=== PATIENT | male | born 1965 | race Caucasian/White ===

== ENCOUNTER 2018-01-17 08:47 | Emergency (ER) | payer MEDICARE, MEDICAID ==
[~2018-01-17] VITALS: Ht 185.4 cm; Wt 86.0 kg
[~2018-01-17 08:47] MED LIST: CEPH-572 PO; CEPH250T PO; IBUP-1051 PO; IBUP-1985 PO; IBUP-1986 PO; NO HOME MEDS; SULF1TAB49 PO
[2018-01-17 08:49] VITALS: BP 117/86
[2018-01-17] MEDS ORDERED: SULF1TAB49 PO (09:07)
[2018-01-17] MEDS ORDERED: CEPH-572 PO (09:07)
== END 2018-01-17 09:18 | disposition home or self-care (01) ==
LOC: ER 08:48
DX: L03.115 Cellulitis of right lower limb (principal); F17.200 Nicotine dependence, unspecified, uncomplicated; G89.29 Other chronic pain; F12.90 Cannabis use, unspecified, uncomplicated; F15.90 Other stimulant use, unspecified, uncomplicated; Z86.19 Personal history of other infectious and parasitic diseases; Z91.14 Patient's other noncompliance with medication regimen; Z71.6 Tobacco abuse counseling; Z86.14 Personal history of Methicillin resistant Staphylococcus aureus infection; Z56.0 Unemployment, unspecified; Z79.899 Other long term (current) drug therapy
CPT/HCPCS: 99283; 99406; A6255

== ENCOUNTER 2018-03-07 19:12 | Emergency (ER) | payer MEDICARE, MEDICAID ==
[~2018-03-07] VITALS: Ht 182.9 cm; Wt 60.9 kg
[~2018-03-07 19:12] MED LIST changes: -CEPH-572 PO; -CEPH250T PO; -SULF1TAB49 PO
[2018-03-07 19:15] VITALS: BP 116/78
[2018-03-07] MEDS ORDERED: ibuprofen tablet 400 MG TABLET PO ONE (20:35)
[2018-03-07] MEDS ORDERED: acetaminophen 325mg tablet PO ONE (20:35)
[2018-03-07] MEDS ORDERED: bacitracin 15gm ointment TP ONE (20:35)
[2018-03-07] MEDS ORDERED: SULF1TAB49 PO (20:37)
[2018-03-07] MEDS ORDERED: IBUP-1984 PO (20:38)
[2018-03-07] MEDS ORDERED: sulfamethoxazole/trimethoprim DS (800/160mg) tablet PO ONE (20:40)
== END 2018-03-07 21:07 | disposition home or self-care (01) ==
LOC: ER 19:12
DX: S91.105A Unspecified open wound of left lesser toe(s) without damage to nail, initial encounter (principal); L08.9 Local infection of the skin and subcutaneous tissue, unspecified; G89.29 Other chronic pain; F12.90 Cannabis use, unspecified, uncomplicated; Z86.14 Personal history of Methicillin resistant Staphylococcus aureus infection; Z86.19 Personal history of other infectious and parasitic diseases; F15.90 Other stimulant use, unspecified, uncomplicated; Z56.0 Unemployment, unspecified; Z79.2 Long term (current) use of antibiotics; Z79.899 Other long term (current) drug therapy; X58.XXXA Exposure to other specified factors, initial encounter; Y93.89 Activity, other specified; Y92.89 Other specified places as the place of occurrence of the external cause; Y99.8 Other external cause status
CPT/HCPCS: 99283

== ENCOUNTER 2018-05-09 09:45 | Emergency (ER) | payer MEDICARE, MEDICAID ==
[~2018-05-09] VITALS: Ht 182.9 cm; Wt 90.0 kg
[2018-05-09 09:58] VITALS: BP 127/87
[2018-05-09] MEDS ORDERED: BACDS PO (10:38)
== END 2018-05-09 10:56 | disposition home or self-care (01) ==
LOC: ER 09:45
DX: S81.802D Unspecified open wound, left lower leg, subsequent encounter (principal); L03.116 Cellulitis of left lower limb; B18.2 Chronic viral hepatitis C; L02.91 Cutaneous abscess, unspecified; B95.62 Methicillin resistant Staphylococcus aureus infection as the cause of diseases classified elsewhere; F12.90 Cannabis use, unspecified, uncomplicated; F15.90 Other stimulant use, unspecified, uncomplicated; Z56.0 Unemployment, unspecified; Z79.899 Other long term (current) drug therapy; X58.XXXD Exposure to other specified factors, subsequent encounter
CPT/HCPCS: 99283

== ENCOUNTER 2018-06-15 11:24 | Emergency (ER) | payer MEDICARE, MEDICAID ==
[~2018-06-15] VITALS: Ht 182.9 cm; Wt 90.9 kg
[2018-06-15] MEDS ORDERED: normal saline 1000ML IV soln IVB ONE ×2 (13:15)
[2018-06-15] MEDS ORDERED: ondansetron/PF 4mg/2ml inj IV ONE (13:15)
[2018-06-15 13:16] VITALS: BP 143/79
[2018-06-15] MEDS ORDERED: sulfamethoxazole/trimethoprim DS (800/160mg) tablet PO ONE (13:30)
[2018-06-15] MEDS ORDERED: acetaminophen 325mg tablet PO ONE (13:30)
[2018-06-15 13:46] LABS: BASOPHILS % (AUTO) 0.2 % (0-1); EOSINOPHILS % (AUTO) 0 % (0-6); HEMATOCRIT 38.8 % (42.0-52.0); HEMOGLOBIN 12.8 g/dl (14.0-17.9); LYMPHOCYTES # (AUTO) 0.9 X10'3 (1.1-4.8); LYMPHOCYTES % (AUTO) 8.9 % (21-51); MEAN CORPUSCULAR HEMOGLOBIN 24.1 PG (27.0-31.0); MEAN CORPUSCULAR HGB CONC 32.8 % (33.0-36.5); MEAN CORPUSCULAR VOLUME 73.3 FL (78-98); MEAN PLATELET VOLUME 7.6 FL (7.4-10.4); MONOCYTES # (AUTO) 0.5 X10'3 (0-0.9); MONOCYTES % (AUTO) 5.1 % (2-12); NEUTROPHILS % (AUTO) 85.8 % (42-75); PLATELET COUNT 203 X10'3 (140-440); RED CELL DISTRIBUTION WIDTH 14.6 % (11.5-14.5); WHITE BLOOD COUNT 10.5 X10'3 (4.5-11.0)
[2018-06-15 13:57] LABS: CLARITY,URINE CLEAR (Clear); COLOR,URINE YELLOW (Yellow); GLUCOSE, URINE NEGATIVE (Neg); KETONES,URINE NEGATIVE (Neg); LEUKOCYTE ESTERASE ,URINE NEGATIVE (Neg); NITRITES, URINE NEGATIVE (Neg); OCCULT BLOOD,URINE TRACE-INTACT (Neg); PROTEIN,URINE NEGATIVE (Neg)
[2018-06-15 13:58] LABS: UA COLLECTION TYPE CLN CATCH MIDSTREAM
[2018-06-15 14:00] LABS: INR 1.1 INR; PARTIAL THROMBOPLASTIN TIME 29 SECONDS (22-32); PROTHROMBIN TIME 11.2 SECONDS (9.0-12.0)
[2018-06-15 14:01] LABS: ALANINE AMINOTRANSFERASE 69 U/L (12-78); ALBUMIN 3.4 G/DL (3.4-5.0); ALBUMIN/GLOBULIN RATIO 0.9 (1.1-1.5); ALKALINE PHOSPHATASE 84 IU/L (46-116); ANION GAP 10 (8-16); ASPARTATE AMINO TRANSFERASE 42 U/L (10-37); BILIRUBIN,TOTAL 0.9 MG/DL (0.1-1.0); BLOOD UREA NITROGEN 24 MG/DL (7-18); BUN/CREATININE RATIO 26.1 (5.4-32.0); CALCIUM 8.2 MG/DL (8.5-10.1); CHLORIDE 95 MMOL/L (99-107); CREATININE 0.92 MG/DL (0.60-1.10); GLUCOSE 102 MG/DL (70-104); POTASSIUM 3.9 MMOL/L (3.5-5.1); SODIUM 130 MMOL/L (135-145); TOTAL CARBON DIOXIDE 24.6 MMOL/L (24-32); TOTAL PROTEIN 7.4 G/DL (6.4-8.2); eGFR 87 ML/MIN
[2018-06-15 14:06] LABS: WBC,URINE 0-4 /HPF (0-4)
[2018-06-15 14:07] LABS: BACTERIA,URINE NONE SEEN /HPF (Neg); MUCUS STRANDS MODERATE /LPF (Neg); RBC,URINE 0-2 /HPF (0-2); SQUAMOUS EPITHELIAL CELL,UR FEW /LPF (FEW)
[2018-06-15] MEDS ORDERED: SULF1TAB49 PO (14:35)
[2018-06-15] MEDS ORDERED: ondansetron 4mg rapidly disintigrating tab PO ONE (14:35)
== END 2018-06-15 15:14 | disposition home or self-care (01) ==
LOC: ER 11:24
DX: L02.415 Cutaneous abscess of right lower limb (principal); L02.416 Cutaneous abscess of left lower limb; G89.29 Other chronic pain; Z86.14 Personal history of Methicillin resistant Staphylococcus aureus infection; F12.90 Cannabis use, unspecified, uncomplicated; F15.90 Other stimulant use, unspecified, uncomplicated; Z79.899 Other long term (current) drug therapy; Z56.0 Unemployment, unspecified
CPT/HCPCS: 10061; 36415; 71045; 80053; 81001; 83605; 84145; 85025; 85610; 85730; 87040; 99284

== ENCOUNTER 2018-08-27 12:01 | Emergency (ER) | payer MEDICARE, MEDICAID ==
[~2018-08-27] VITALS: Ht 182.9 cm; Wt 84.0 kg
[2018-08-27 12:07] VITALS: BP 128/87
== END 2018-08-27 12:25 | disposition left against medical advice (07) ==
LOC: ER 12:01
DX: Z11.1 Encounter for screening for respiratory tuberculosis (principal); G89.29 Other chronic pain; F12.10 Cannabis abuse, uncomplicated; F15.10 Other stimulant abuse, uncomplicated; Z56.0 Unemployment, unspecified; Z79.899 Other long term (current) drug therapy; Z86.19 Personal history of other infectious and parasitic diseases
CPT/HCPCS: 99281

== ENCOUNTER 2019-03-02 18:22 | Emergency (ER) | payer MEDICARE, MEDICAID ==
[~2019-03-02] VITALS: Ht 182.9 cm; Wt 81.1 kg
[2019-03-02] MEDS ORDERED: SULF1TAB49 PO (20:16)
[2019-03-02] MEDS ORDERED: LIDOcaine 1% w/EPI 1:200,000 injection 10mL vial IM ONE (20:20)
--- NOTE | 2019-03-02 21:00 | NUR ---
PA REYES LANCED ABCESS AND I DRESSED WOUND WITH NONSTICK, 4X4 GAUZE, LIGHT COBAN WRAP AND AN LORRIE BANDAGE. PATIENT WILL KEPP WOUND CLEAN AND DRY AND FOLLOW UP WITH [facility] FOR WOUND RECHECK IN 2-3 DAYS. PATIETN VERBALIZED SIGNS AND SYMPTOMS OF INFECTION AND WILL RETURN TO THE ER IF SIGHN OF INFECTION OCCUR.
[2019-03-02 21:20] VITALS: BP 124/67
== END 2019-03-02 21:22 | disposition home or self-care (01) ==
LOC: ER 18:23
DX: L02.415 Cutaneous abscess of right lower limb (principal); F12.90 Cannabis use, unspecified, uncomplicated; F15.90 Other stimulant use, unspecified, uncomplicated; Z56.0 Unemployment, unspecified; Z86.14 Personal history of Methicillin resistant Staphylococcus aureus infection; Z79.899 Other long term (current) drug therapy
CPT/HCPCS: 10060; 99283

== ENCOUNTER 2019-07-02 09:09 | Emergency (ER) | payer MEDICARE, MEDICAID ==
[~2019-07-02] VITALS: Ht 182.9 cm; Wt 85.5 kg
[2019-07-02 09:18] VITALS: BP 134/94
== END 2019-07-02 10:12 | disposition home or self-care (01) ==
LOC: ER 09:09
DX: M79.671 Pain in right foot (principal); G89.29 Other chronic pain; F12.90 Cannabis use, unspecified, uncomplicated; F15.90 Other stimulant use, unspecified, uncomplicated; Z59.0 Homelessness; Z56.0 Unemployment, unspecified; Z86.19 Personal history of other infectious and parasitic diseases; Z98.890 Other specified postprocedural states
CPT/HCPCS: 99281

== ENCOUNTER 2019-07-03 15:22 | Emergency (ER) | payer MEDICARE, MEDICAID ==
[~2019-07-03] VITALS: Ht 182.9 cm; Wt 86.4 kg
[2019-07-03 15:37] VITALS: BP 163/101
== END 2019-07-03 17:01 | disposition home or self-care (01) ==
LOC: ER 15:24
DX: Z02.89 Encounter for other administrative examinations (principal); L08.89 Other specified local infections of the skin and subcutaneous tissue; G89.29 Other chronic pain; F12.90 Cannabis use, unspecified, uncomplicated; F15.90 Other stimulant use, unspecified, uncomplicated; Z56.0 Unemployment, unspecified; Z98.890 Other specified postprocedural states; Z86.14 Personal history of Methicillin resistant Staphylococcus aureus infection; Z86.19 Personal history of other infectious and parasitic diseases
CPT/HCPCS: 99281

== ENCOUNTER 2019-12-05 01:12 | Emergency (ER) | payer MEDICARE, MEDICAID ==
[~2019-12-05] VITALS: Ht 182.9 cm; Wt 90.9 kg
--- NOTE | 2019-12-05 03:45 | NUR ---
irrigated ear as ordered by dr rush pt tolerated well . minimum removal of ear wax .
[2019-12-05] MEDS ORDERED: NAPR-56 PO (04:19)
[2019-12-05 04:26] VITALS: BP 109/95
== END 2019-12-05 04:28 | disposition home or self-care (01) ==
LOC: ER 01:13
DX: H61.21 Impacted cerumen, right ear (principal); G89.29 Other chronic pain; F12.90 Cannabis use, unspecified, uncomplicated; F15.90 Other stimulant use, unspecified, uncomplicated; Z56.0 Unemployment, unspecified; Z86.14 Personal history of Methicillin resistant Staphylococcus aureus infection; Z86.19 Personal history of other infectious and parasitic diseases; Z98.890 Other specified postprocedural states; Z72.89 Other problems related to lifestyle; Z79.899 Other long term (current) drug therapy
CPT/HCPCS: 69209; 69210; 99282; 99284

== ENCOUNTER 2021-05-08 19:05 | Emergency (ER) | payer MEDICARE, MEDICAID ==
[~2021-05-08] VITALS: Ht 182.9 cm; Wt 86.4 kg
[2021-05-08 19:16] VITALS: BP 115/85
[2021-05-08] MEDS ORDERED: MECL-226 PO (22:41)
[2021-05-08] MEDS ORDERED: SULF1TAB45 PO (22:41)
[2021-05-08] MEDS ORDERED: CARB15DR65 EACH EAR (22:41)
[2021-05-08] MEDS ORDERED: ONDA4TAB6 PO (22:41)
[2021-05-08] MEDS ORDERED: meclizine 12.5mg tablet PO ONE (22:50)
[2021-05-08] MEDS ORDERED: sulfamethoxazole/trimethoprim DS (800/160mg) tablet PO ONE (22:50)
[2021-05-08] MEDS ORDERED: ondansetron 4mg rapidly disintigrating tab PO ONE (22:50)
== END 2021-05-08 23:01 | disposition home or self-care (01) ==
LOC: ER 19:05
DX: L08.9 Local infection of the skin and subcutaneous tissue, unspecified (principal); H61.23 Impacted cerumen, bilateral; H92.03 Otalgia, bilateral; R42 Dizziness and giddiness; G89.29 Other chronic pain; F12.90 Cannabis use, unspecified, uncomplicated; F15.90 Other stimulant use, unspecified, uncomplicated; Z86.19 Personal history of other infectious and parasitic diseases; Z86.14 Personal history of Methicillin resistant Staphylococcus aureus infection; Z98.890 Other specified postprocedural states; Z72.89 Other problems related to lifestyle; Z56.0 Unemployment, unspecified; Z79.2 Long term (current) use of antibiotics; Z79.899 Other long term (current) drug therapy
CPT/HCPCS: 99284; J8597

== ENCOUNTER 2021-05-21 12:53 | Emergency (ER) | payer MEDICARE, MEDICAID ==
[~2021-05-21 12:53] MED LIST changes: +CARB15DR65 EACH EAR; +MECL-226 PO; +ONDA4TAB6 PO
== END 2021-05-21 16:00 | disposition left against medical advice (07) ==
LOC: ER 12:54
DX: Z53.21 Procedure and treatment not carried out due to patient leaving prior to being seen by health care provider (principal)

== ENCOUNTER 2021-06-15 21:11 | Emergency (ER) | payer MEDICARE, MEDICAID ==
[~2021-06-15] VITALS: Ht 185.4 cm; Wt 90.9 kg
[2021-06-15 21:31] VITALS: BP 148/96
[2021-06-15] MEDS ORDERED: sulfamethoxazole/trimethoprim DS (800/160mg) tablet PO ONE (22:00)
[2021-06-15] MEDS ORDERED: SULF1TAB45 PO (22:02)
--- NOTE | 2021-06-15 22:38 | NUR ---
Pt given and understands d/c instructions. Ambulatory with a steady gait. Pt is homeless. Given a sandwich and juice.
== END 2021-06-15 22:39 | disposition home or self-care (01) ==
LOC: ER 21:12
DX: L03.114 Cellulitis of left upper limb (principal); F12.90 Cannabis use, unspecified, uncomplicated; F15.90 Other stimulant use, unspecified, uncomplicated; Z86.14 Personal history of Methicillin resistant Staphylococcus aureus infection; Z59.00 Homelessness unspecified; Z79.899 Other long term (current) drug therapy; G89.29 Other chronic pain; Z86.19 Personal history of other infectious and parasitic diseases; Z56.0 Unemployment, unspecified; Z72.89 Other problems related to lifestyle; Z76.0 Encounter for issue of repeat prescription
CPT/HCPCS: 99283

== ENCOUNTER 2021-06-21 02:31 | Emergency (ER) | payer MEDICARE, MEDICAID ==
[~2021-06-21 02:31] MED LIST changes: +SULF1TAB45 PO
== END 2021-06-21 04:30 | disposition left against medical advice (07) ==
LOC: ER 02:31
DX: Z76.0 Encounter for issue of repeat prescription (principal); Z53.21 Procedure and treatment not carried out due to patient leaving prior to being seen by health care provider

== ENCOUNTER 2021-07-04 00:08 | Emergency (ER) | payer MEDICARE, MEDICAID ==
[~2021-07-04] VITALS: Ht 182.9 cm; Wt 86.8 kg
[~2021-07-04 00:08] MED LIST changes: -SULF1TAB45 PO
[2021-07-04 00:10] VITALS: BP 169/98
== END 2021-07-04 01:11 | disposition left against medical advice (07) ==
LOC: ER 00:09
DX: M79.672 Pain in left foot (principal); M79.671 Pain in right foot; Z53.21 Procedure and treatment not carried out due to patient leaving prior to being seen by health care provider

== ENCOUNTER 2022-02-19 01:29 | Emergency (ER) | payer MEDICARE, MEDICAID ==
[~2022-02-19] VITALS: Ht 185.4 cm; Wt 95.5 kg
[2022-02-19 02:01] VITALS: BP 136/96
--- NOTE | 2022-02-19 03:48 | NUR ---
PATIENT LEFT ED WITHOUT GETTING APPROPRIATE TREATMENT. AFTER BEING CONTACTED BY [employer] AND RECIEVING TW O TICKETS FORF PRIOR WARRANTS, PATIENT STATED THAT HE "DIDNT FEEL SAFE IN THE HOSPITAL." HE WAS ADVISED NOT TO LEAVE, BUT WAS ADAMANDT. HE LEFT WHILE AOX4 AND AMBULATORY.
== END 2022-02-19 03:52 | disposition left against medical advice (07) ==
LOC: ER 01:30
DX: M79.602 Pain in left arm (principal); Z53.21 Procedure and treatment not carried out due to patient leaving prior to being seen by health care provider; Y04.8XXA Assault by other bodily force, initial encounter; Y93.89 Activity, other specified; Y92.89 Other specified places as the place of occurrence of the external cause; Y99.8 Other external cause status
CPT/HCPCS: 73090

== ENCOUNTER 2022-03-01 22:03 | Emergency (ER) | payer MEDICARE, MEDICAID | END 2022-03-02 07:12 | disposition left against medical advice (07) | LOC: ER 22:04 | DX: Z00.8 Encounter for other general examination (principal); Z53.21 Procedure and treatment not carried out due to patient leaving prior to being seen by health care provider ==

== ENCOUNTER 2022-03-20 00:05 | Emergency (ER) | payer MEDICARE, MEDICAID ==
[~2022-03-20] VITALS: Ht 177.8 cm; Wt 88.6 kg
[2022-03-20 00:31] VITALS: BP 146/95
== END 2022-03-20 02:23 | disposition left against medical advice (07) ==
LOC: ER 00:05
DX: S42.309A Unspecified fracture of shaft of humerus, unspecified arm, initial encounter for closed fracture (principal); Z53.21 Procedure and treatment not carried out due to patient leaving prior to being seen by health care provider; X58.XXXA Exposure to other specified factors, initial encounter; Y93.89 Activity, other specified; Y92.89 Other specified places as the place of occurrence of the external cause; Y99.8 Other external cause status

== ENCOUNTER 2022-04-20 17:48 | Emergency (ER) | payer MEDICARE, MEDICAID ==
--- NOTE | 2022-04-20 19:51 | NUR ---
PT DECIDED HE WOULD NOT BE SEEN TODAY HE IS GOING TO FOLLOW UP WITH [facility] IN THE AM FOR HIS LEFT ARM HE BROKE 3 WEEKS AGO AND WAS SEEN AND REFERED BUT DIDNT FOLLOW UP . PT IS ASKING FOR A REFERRAL AND IS STABLE , STATES HE DID NOT KNOW WHAT TO DO . ADVISED PT TO GO TO MEDICAL RECORDS FOR HER CHART AND TO FOLLOW UP WITH HIS PRIMARY OR HIS REFERRAL . PT VERBALIZED HE WAS STABLE AND WOULD BE CONTACTING [facility] IN THE AM
== END 2022-04-20 19:55 | disposition left against medical advice (07) ==
LOC: ER 17:49
DX: S42.309A Unspecified fracture of shaft of humerus, unspecified arm, initial encounter for closed fracture (principal); Z53.21 Procedure and treatment not carried out due to patient leaving prior to being seen by health care provider; X58.XXXA Exposure to other specified factors, initial encounter; Y93.89 Activity, other specified; Y92.89 Other specified places as the place of occurrence of the external cause; Y99.8 Other external cause status

== ENCOUNTER 2022-07-29 14:48 | Emergency (ER) | payer MEDICARE, MEDICAID | END 2022-07-29 15:00 | disposition left against medical advice (07) | LOC: ER 14:49 | DX: M79.10 Myalgia, unspecified site (principal); Z53.21 Procedure and treatment not carried out due to patient leaving prior to being seen by health care provider ==

== ENCOUNTER 2022-08-14 19:58 | Emergency (ER) | payer MEDICARE, MEDICAID ==
[~2022-08-14] VITALS: Ht 182.9 cm; Wt 90.9 kg
[2022-08-14 20:17] VITALS: BP 120/93
[2022-08-14] MEDS ORDERED: HYDROcodone/acetaminophen 10/325mg tab PO ONE (20:55)
== END 2022-08-14 21:05 | disposition home or self-care (01) ==
LOC: ER 19:58
DX: R52 Pain, unspecified (principal); F12.90 Cannabis use, unspecified, uncomplicated; F15.20 Other stimulant dependence, uncomplicated; Z87.81 Personal history of (healed) traumatic fracture; Z56.0 Unemployment, unspecified
CPT/HCPCS: 99284

== ENCOUNTER 2022-08-15 03:55 | Emergency (ER) | payer MEDICARE, MEDICAID ==
[~2022-08-15] VITALS: Ht 182.9 cm; Wt 100.0 kg
[2022-08-15 03:59] VITALS: BP 155/107
[2022-08-15] MEDS ORDERED: acetaminophen 325mg tablet PO ONE (04:30)
== END 2022-08-15 05:32 | disposition home or self-care (01) ==
LOC: ER 03:56
DX: R51.9 Headache, unspecified (principal); G89.29 Other chronic pain; M54.50 Low back pain, unspecified; F12.90 Cannabis use, unspecified, uncomplicated; F15.20 Other stimulant dependence, uncomplicated; Z59.00 Homelessness unspecified; Z56.0 Unemployment, unspecified
CPT/HCPCS: 99282

== ENCOUNTER 2023-04-19 15:47 | Emergency (ER) | payer MEDICARE, MEDICAID ==
[2023-04-20] MEDS ORDERED: DOXY-1 PO (09:37)
== END 2023-04-19 17:08 | disposition left against medical advice (07) ==
LOC: ER 15:49
DX: Z00.8 Encounter for other general examination (principal); Z53.21 Procedure and treatment not carried out due to patient leaving prior to being seen by health care provider

== ENCOUNTER 2023-04-20 08:26 | Emergency (ER) | payer MEDICARE, MEDICAID ==
[~2023-04-20] VITALS: Ht 182.9 cm; Wt 81.5 kg
[2023-04-20 08:59] VITALS: BP 149/97; PULSE 76; TEMP 98.6; O2SAT 100
[2023-04-20 09:11] VITALS: RESP 18
[2023-04-20] MEDS ORDERED: DOXYCYCLINE 100MG CAPSULE PO STA (09:37)
[2023-04-20] MEDS ORDERED: DOXY-1 PO (09:37)
--- NOTE | 2023-04-20 17:05 | NUR ---
DIETETICS DIRECTOR'S GEN ASSESSMENT REVIEWED BY [place], [facility] CS; APPROVED
== END 2023-04-20 09:58 | disposition home or self-care (01) ==
LOC: ER 08:27
DX: L03.115 Cellulitis of right lower limb (principal); L03.114 Cellulitis of left upper limb; H60.11 Cellulitis of right external ear
CPT/HCPCS: 99283

== ENCOUNTER 2023-05-31 05:42 | Emergency (ER) | payer MEDICARE, MEDICAID ==
[~2023-05-31] VITALS: Ht 182.9 cm; Wt 81.3 kg
[2023-05-31] MEDS ORDERED: GUAI120015 PO (07:02)
[2023-05-31] MEDS ORDERED: DIPH-423 PO ×2 (07:02→07:08)
[2023-05-31] MEDS ORDERED: ROBDML PO ×2 (07:02→07:08)
[2023-05-31 07:20] VITALS: BP 149/112; PULSE 100; RESP 18; TEMP 97.9; O2SAT 98
== END 2023-05-31 07:24 | disposition home or self-care (01) ==
LOC: ER 05:43
DX: N39.0 Urinary tract infection, site not specified (principal); Z20.822 Contact with and (suspected) exposure to COVID-19
CPT/HCPCS: 36415; 71046; 87502; 87503; 87811; 99284

== ENCOUNTER 2023-06-03 03:53 | Emergency (ER) | payer MEDICARE, MEDICAID ==
[~2023-06-03] VITALS: Ht 185.4 cm; Wt 86.3 kg
[~2023-06-03 03:53] MED LIST changes: +DIPH-423 PO; +ROBDML PO
[2023-06-03 04:33] VITALS: BP 190/99; PULSE 99; RESP 17; TEMP 98.3; O2SAT 99
== END 2023-06-03 04:35 | disposition home or self-care (01) ==
LOC: ER 03:54
DX: J06.9 Acute upper respiratory infection, unspecified (principal)
CPT/HCPCS: 99281

== ENCOUNTER 2023-06-08 01:22 | Emergency (ER) | payer MEDICARE, MEDICAID ==
[~2023-06-08] VITALS: Ht 182.9 cm; Wt 82.1 kg
[2023-06-08 02:29] VITALS: BP 165/98; PULSE 96; RESP 16; TEMP 98.2; O2SAT 99
== END 2023-06-08 04:03 | disposition left against medical advice (07) ==
LOC: ER 01:23
DX: R21 Rash and other nonspecific skin eruption (principal); Z53.21 Procedure and treatment not carried out due to patient leaving prior to being seen by health care provider
CPT/HCPCS: 99281

== ENCOUNTER 2023-06-10 00:48 | Emergency (ER) | payer MEDICARE, MEDICAID ==
[~2023-06-10] VITALS: Ht 185.4 cm; Wt 84.1 kg
[2023-06-10 00:49] VITALS: BP 166/108; PULSE 113; RESP 20; TEMP 98.5; O2SAT 99
[2023-06-10 01:21] LABS: BASOPHILS # (AUTO) 0.1 X10'3 (0-0.2); BASOPHILS % (AUTO) 1.2 % (0-1); EOSINOPHILS # (AUTO) 0.2 X10'3 (0-0.9); EOSINOPHILS % (AUTO) 4.2 % (0-6); HEMATOCRIT 37.2 % (42.0-52.0); LYMPHOCYTES # (AUTO) 1.9 X10'3 (1.1-4.8); LYMPHOCYTES % (AUTO) 35.7 % (21-51); MEAN CORPUSCULAR HGB CONC 32.3 g/dL (33.0-36.5); MEAN CORPUSCULAR VOLUME 74.4 FL (78-98); MEAN PLATELET VOLUME 7.4 FL (7.4-10.4); MONOCYTES # (AUTO) 0.5 X10'3 (0-0.9); MONOCYTES % (AUTO) 9.9 % (2-12); NEUTROPHILS # (AUTO) 2.6 X10'3 (1.8-7.7); PLATELET COUNT 274 X10'3 (140-440); RED CELL DISTRIBUTION WIDTH 15.3 % (11.5-14.5); WHITE BLOOD COUNT 5.3 X10'3 (4.5-11.0)
[2023-06-10 01:35] LABS: ALANINE AMINOTRANSFERASE 44 U/L (12-78); ALBUMIN 3.1 G/DL (3.4-5.0); ALBUMIN/GLOBULIN RATIO 0.9 (1.1-1.5); ALKALINE PHOSPHATASE 69 IU/L (46-116); ANION GAP 10 (8-16); ASPARTATE AMINO TRANSFERASE 36 U/L (10-37); BILIRUBIN,TOTAL 0.2 MG/DL (0.1-1.0); BLOOD UREA NITROGEN 31 MG/DL (7-18); CALCIUM 8.3 MG/DL (8.5-10.1); CHLORIDE 106 MMOL/L (99-107); CREATININE 0.94 MG/DL (0.60-1.10); GLUCOSE 103 MG/DL (70-104); POTASSIUM 3.7 MMOL/L (3.5-5.1); SODIUM 139 MMOL/L (135-145); TOTAL CARBON DIOXIDE 22.9 MMOL/L (24-32); TOTAL PROTEIN 6.7 G/DL (6.4-8.2); eCRCL 99 ML/MIN; eGFR 83 ML/MIN
[2023-06-10 01:42] LABS: PRO BRAIN NATRIURETIC PEPTIDE 244 PG/ML (0-125)
== END 2023-06-10 03:54 | disposition left against medical advice (07) ==
LOC: ER 00:48
DX: R07.9 Chest pain, unspecified (principal); Z53.21 Procedure and treatment not carried out due to patient leaving prior to being seen by health care provider
CPT/HCPCS: 36415; 80053; 83880; 84484; 85025; 93005; 99281

== ENCOUNTER 2023-06-10 16:50 | Emergency (ER) | payer MEDICARE, MEDICAID ==
[~2023-06-10] VITALS: Ht 185.4 cm; Wt 87.2 kg
[2023-06-10] MEDS ORDERED: dexamethasone sod phosphate 10mg/ml inj IV STA (20:11)
[2023-06-10] MEDS ORDERED: ipratropium 0.5 MG/2.5ML nebule IH ONE (20:15)
[2023-06-10] MEDS ORDERED: albuterol 2.5 MG/3 ML nebule CONTNEB PRN (20:15)
[2023-06-10 20:32] LABS: EOSINOPHILS # (AUTO) 0.1 X10'3 (0-0.9); HEMOGLOBIN 12.3 g/dl (14.0-17.9); LYMPHOCYTES # (AUTO) 0.8 X10'3 (1.1-4.8); MEAN CORPUSCULAR HGB CONC 32.6 g/dL (33.0-36.5); MONOCYTES # (AUTO) 0.2 X10'3 (0-0.9); NEUTROPHILS # (AUTO) 4.3 X10'3 (1.8-7.7); WHITE BLOOD COUNT 5.4 X10'3 (4.5-11.0)
[2023-06-10 20:34] LABS: BASOPHILS % (AUTO) 0.6 % (0-1); EOSINOPHILS % (AUTO) 1.2 % (0-6); HEMATOCRIT 37.6 % (42.0-52.0); LYMPHOCYTES % (AUTO) 14.4 % (21-51); MEAN CORPUSCULAR VOLUME 73.7 FL (78-98); MONOCYTES % (AUTO) 3.5 % (2-12); NEUTROPHILS % (AUTO) 80.3 % (42-75); PLATELET COUNT 230 X10'3 (140-440); RED CELL DISTRIBUTION WIDTH 15.2 % (11.5-14.5)
[2023-06-10 20:39] VITALS: PULSE 109; RESP 16; O2SAT 96
[2023-06-10 20:59] LABS: ALANINE AMINOTRANSFERASE 42 U/L (12-78); ALBUMIN 3.2 G/DL (3.4-5.0); ALBUMIN/GLOBULIN RATIO 0.9 (1.1-1.5); ALKALINE PHOSPHATASE 68 IU/L (46-116); ANION GAP 10 (8-16); ASPARTATE AMINO TRANSFERASE 32 U/L (10-37); BILIRUBIN,TOTAL 0.5 MG/DL (0.1-1.0); BLOOD UREA NITROGEN 21 MG/DL (7-18); BUN/CREATININE RATIO 26.6 (10.0-20.0); CALCIUM 8.3 MG/DL (8.5-10.1); CHLORIDE 100 MMOL/L (99-107); CREATININE 0.79 MG/DL (0.60-1.10); GLUCOSE 89 MG/DL (70-104); POTASSIUM 3.8 MMOL/L (3.5-5.1); SODIUM 133 MMOL/L (135-145); TOTAL PROTEIN 6.6 G/DL (6.4-8.2); eCRCL 118 ML/MIN; eGFR > 90 ML/MIN
[2023-06-10 21:35] VITALS: PULSE 102; RESP 18; O2SAT 97
[2023-06-10 21:45] VITALS: BP 158/93; PULSE 94; TEMP 99.4; O2SAT 100
[2023-06-10 21:47] VITALS: RESP 16
== END 2023-06-10 22:19 | disposition home or self-care (01) ==
LOC: ER 16:51
DX: B34.9 Viral infection, unspecified (principal); Z20.822 Contact with and (suspected) exposure to COVID-19; F12.10 Cannabis abuse, uncomplicated; F15.10 Other stimulant abuse, uncomplicated; Z59.00 Homelessness unspecified; Z86.14 Personal history of Methicillin resistant Staphylococcus aureus infection
CPT/HCPCS: 36415; 71045; 80053; 85025; 87502; 87503; 87811; 94640; 94644; 96374; 99285; J1100; A7015

== ENCOUNTER 2023-06-13 02:01 | Emergency (ER) | payer MEDICARE, MEDICAID ==
[~2023-06-13] VITALS: Ht 185.4 cm; Wt 82.2 kg
[2023-06-13 02:17] VITALS: BP 154/97; PULSE 91; O2SAT 98
[2023-06-13 04:36] LABS: EOSINOPHILS # (AUTO) 0.1 X10'3 (0-0.9); MEAN PLATELET VOLUME 7.7 FL (7.4-10.4); RED CELL DISTRIBUTION WIDTH 15.7 % (11.5-14.5); WHITE BLOOD COUNT 4.6 X10'3 (4.5-11.0)
[2023-06-13 04:38] LABS: BASOPHILS # (AUTO) 0.1 X10'3 (0-0.2); BASOPHILS % (AUTO) 1.2 % (0-1); HEMATOCRIT 38.9 % (42.0-52.0); HEMOGLOBIN 12.8 g/dl (14.0-17.9); LYMPHOCYTES # (AUTO) 1.7 X10'3 (1.1-4.8); LYMPHOCYTES % (AUTO) 37.2 % (21-51); MEAN CORPUSCULAR HEMOGLOBIN 24.2 PG (27.0-31.0); MEAN CORPUSCULAR HGB CONC 32.9 g/dL (33.0-36.5); MEAN CORPUSCULAR VOLUME 73.6 FL (78-98); MONOCYTES # (AUTO) 0.6 X10'3 (0-0.9); MONOCYTES % (AUTO) 12.5 % (2-12); NEUTROPHILS # (AUTO) 2.1 X10'3 (1.8-7.7); NEUTROPHILS % (AUTO) 46.1 % (42-75); PLATELET COUNT 244 X10'3 (140-440); RED BLOOD COUNT 5.28 X10'6 (4.70-6.10)
[2023-06-13 04:41] LABS: APTT 27 SECONDS (22-32)
[2023-06-13 04:43] LABS: ALANINE AMINOTRANSFERASE 78 U/L (12-78); ALBUMIN 3.2 G/DL (3.4-5.0); ALBUMIN/GLOBULIN RATIO 0.9 (1.1-1.5); ALKALINE PHOSPHATASE 69 IU/L (46-116); ANION GAP 8 (8-16); ASPARTATE AMINO TRANSFERASE 61 U/L (10-37); BILIRUBIN,TOTAL 0.4 MG/DL (0.1-1.0); BLOOD UREA NITROGEN 20 MG/DL (7-18); BUN/CREATININE RATIO 23.3 (10.0-20.0); CALCIUM 8.4 MG/DL (8.5-10.1); CHLORIDE 104 MMOL/L (99-107); CREATININE 0.86 MG/DL (0.60-1.10); GLUCOSE 124 MG/DL (70-104); POTASSIUM 3.8 MMOL/L (3.5-5.1); SODIUM 138 MMOL/L (135-145); TOTAL CARBON DIOXIDE 26.4 MMOL/L (24-32); TOTAL PROTEIN 6.7 G/DL (6.4-8.2); eCRCL 108 ML/MIN; eGFR > 90 ML/MIN
[2023-06-13 04:50] LABS: PRO BRAIN NATRIURETIC PEPTIDE 867 PG/ML (0-125)
[2023-06-13] MEDS ORDERED: SULF1TAB49 PO (05:09)
[2023-06-13] MEDS ORDERED: CEPH-585 PO (05:09)
[2023-06-13 05:21] VITALS: RESP 16
[2023-06-13 05:24] VITALS: TEMP 98.7
== END 2023-06-13 05:26 | disposition home or self-care (01) ==
LOC: ER 02:02
DX: R07.9 Chest pain, unspecified (principal); M25.571 Pain in right ankle and joints of right foot; G89.29 Other chronic pain; M54.9 Dorsalgia, unspecified
CPT/HCPCS: 36415; 71045; 80053; 83735; 83880; 84484; 85025; 85610; 85730; 93005; 99285

== ENCOUNTER 2023-06-23 21:35 | Emergency (ER) | payer MEDICARE, MEDICAID ==
[~2023-06-23] VITALS: Ht 182.9 cm; Wt 86.4 kg
[~2023-06-23 21:35] MED LIST changes: +CEPH-585 PO; -ROBDML PO; +SULF1TAB49 PO
[2023-06-23 21:46] VITALS: BP 161/100; PULSE 104; RESP 18; TEMP 98.4; O2SAT 98
[2023-06-23 21:56] LABS: BASOPHILS # (AUTO) 0.1 X10'3 (0-0.2); BASOPHILS % (AUTO) 1.3 % (0-1); EOSINOPHILS # (AUTO) 0.3 X10'3 (0-0.9); EOSINOPHILS % (AUTO) 5.3 % (0-6); HEMATOCRIT 40.3 % (42.0-52.0); LYMPHOCYTES # (AUTO) 1.9 X10'3 (1.1-4.8); LYMPHOCYTES % (AUTO) 29.8 % (21-51); MEAN CORPUSCULAR HGB CONC 32.3 g/dL (33.0-36.5); MEAN CORPUSCULAR VOLUME 74.1 FL (78-98); MEAN PLATELET VOLUME 7.6 FL (7.4-10.4); MONOCYTES # (AUTO) 0.5 X10'3 (0-0.9); MONOCYTES % (AUTO) 7.9 % (2-12); NEUTROPHILS # (AUTO) 3.5 X10'3 (1.8-7.7); NEUTROPHILS % (AUTO) 55.7 % (42-75); PLATELET COUNT 180 X10'3 (140-440); RED BLOOD COUNT 5.44 X10'6 (4.70-6.10); RED CELL DISTRIBUTION WIDTH 15.8 % (11.5-14.5); WHITE BLOOD COUNT 6.2 X10'3 (4.5-11.0)
[2023-06-23 22:24] LABS: ALANINE AMINOTRANSFERASE 80 U/L (12-78); ALBUMIN 3.5 G/DL (3.4-5.0); ALKALINE PHOSPHATASE 73 IU/L (46-116); ANION GAP 11 (8-16); ASPARTATE AMINO TRANSFERASE 51 U/L (10-37); BILIRUBIN,TOTAL 0.3 MG/DL (0.1-1.0); BLOOD UREA NITROGEN 23 MG/DL (7-18); BUN/CREATININE RATIO 25.8 (10.0-20.0); CHLORIDE 102 MMOL/L (99-107); CREATININE 0.89 MG/DL (0.60-1.10); GLUCOSE 124 MG/DL (70-104); POTASSIUM 3.7 MMOL/L (3.5-5.1); SODIUM 139 MMOL/L (135-145); TOTAL CARBON DIOXIDE 26.5 MMOL/L (24-32); eCRCL 102 ML/MIN; eGFR 88 ML/MIN
[2023-06-23 22:32] LABS: PRO BRAIN NATRIURETIC PEPTIDE 363 PG/ML (0-125)
== END 2023-06-24 00:29 | disposition left against medical advice (07) ==
LOC: ER 21:36
DX: R07.9 Chest pain, unspecified (principal); Z53.21 Procedure and treatment not carried out due to patient leaving prior to being seen by health care provider
CPT/HCPCS: 36415; 71045; 80053; 83880; 84484; 85025; 93005; 99281

== ENCOUNTER 2023-06-26 07:24 | Emergency (ER) | payer MEDICARE, MEDICAID ==
[~2023-06-26] VITALS: Ht 185.4 cm; Wt 86.4 kg
[2023-06-26 08:23] VITALS: BP 147/97; PULSE 84; RESP 16; TEMP 98.2; O2SAT 99
== END 2023-06-26 10:41 | disposition left against medical advice (07) ==
LOC: ER 07:24
DX: M25.571 Pain in right ankle and joints of right foot (principal); Z53.21 Procedure and treatment not carried out due to patient leaving prior to being seen by health care provider
CPT/HCPCS: 73610; 99281

== ENCOUNTER 2023-06-28 06:54 | Emergency (ER) | payer MEDICARE, MEDICAID ==
[~2023-06-28] VITALS: Ht 185.4 cm; Wt 81.2 kg
[~2023-06-28 06:54] MED LIST changes: -SULF1TAB49 PO
[2023-06-28 07:02] VITALS: BP 147/99; PULSE 81; RESP 18; TEMP 97.6; O2SAT 100
== END 2023-06-28 09:00 | disposition left against medical advice (07) ==
LOC: ER 06:55
DX: M79.671 Pain in right foot (principal); Z53.21 Procedure and treatment not carried out due to patient leaving prior to being seen by health care provider
CPT/HCPCS: 99281

== ENCOUNTER 2023-06-29 04:00 | Emergency (ER) | payer MEDICARE, MEDICAID ==
[~2023-06-29] VITALS: Ht 182.9 cm; Wt 78.1 kg
[2023-06-29 04:37] LABS: EOSINOPHILS # (AUTO) 0.2 X10'3 (0-0.9); HEMATOCRIT 40.1 % (42.0-52.0); HEMOGLOBIN 13.1 g/dl (14.0-17.9); LYMPHOCYTES # (AUTO) 1.4 X10'3 (1.1-4.8); MEAN CORPUSCULAR HGB CONC 32.7 g/dL (33.0-36.5); MEAN CORPUSCULAR VOLUME 73.5 FL (78-98); MEAN PLATELET VOLUME 8.1 FL (7.4-10.4); MONOCYTES # (AUTO) 0.3 X10'3 (0-0.9); MONOCYTES % (AUTO) 7.5 % (2-12); NEUTROPHILS % (AUTO) 50.5 % (42-75); PLATELET COUNT 126 X10'3 (140-440); RED BLOOD COUNT 5.46 X10'6 (4.70-6.10); RED CELL DISTRIBUTION WIDTH 15.3 % (11.5-14.5); WHITE BLOOD COUNT 4.1 X10'3 (4.5-11.0)
[2023-06-29 04:48] LABS: ALANINE AMINOTRANSFERASE 61 U/L (12-78); ALBUMIN 3.3 G/DL (3.4-5.0); ALBUMIN/GLOBULIN RATIO 0.9 (1.1-1.5); ALKALINE PHOSPHATASE 64 IU/L (46-116); ANION GAP 8 (8-16); ASPARTATE AMINO TRANSFERASE 59 U/L (10-37); BILIRUBIN,TOTAL 0.4 MG/DL (0.1-1.0); BLOOD UREA NITROGEN 20 MG/DL (7-18); BUN/CREATININE RATIO 24.7 (10.0-20.0); CALCIUM 8.5 MG/DL (8.5-10.1); CHLORIDE 103 MMOL/L (99-107); CREATININE 0.81 MG/DL (0.60-1.10); GLUCOSE 117 MG/DL (70-104); POTASSIUM 3.9 MMOL/L (3.5-5.1); SODIUM 138 MMOL/L (135-145); TOTAL CARBON DIOXIDE 27.2 MMOL/L (24-32); TOTAL PROTEIN 6.9 G/DL (6.4-8.2); eCRCL 112 ML/MIN; eGFR > 90 ML/MIN
[2023-06-29 04:56] LABS: PRO BRAIN NATRIURETIC PEPTIDE 566 PG/ML (0-125)
[2023-06-29 06:07] VITALS: BP 134/90; PULSE 75; RESP 16; TEMP 98.4; O2SAT 99
== END 2023-06-29 06:09 | disposition home or self-care (01) ==
LOC: ER 04:00
DX: R07.89 Other chest pain (principal); F12.90 Cannabis use, unspecified, uncomplicated; F15.90 Other stimulant use, unspecified, uncomplicated; Z79.899 Other long term (current) drug therapy; Z79.2 Long term (current) use of antibiotics; Z79.1 Long term (current) use of non-steroidal anti-inflammatories (NSAID)
CPT/HCPCS: 36415; 71045; 80053; 83880; 84484; 85025; 93005; 99285

== ENCOUNTER 2023-07-03 01:31 | Emergency (ER) | payer MEDICARE, MEDICAID ==
[~2023-07-03] VITALS: Ht 182.9 cm; Wt 86.4 kg
[2023-07-03 01:36] VITALS: BP 140/100; PULSE 90; RESP 16; TEMP 98; O2SAT 96
== END 2023-07-03 01:57 | disposition left against medical advice (07) ==
LOC: ER 01:31
DX: R07.89 Other chest pain (principal); Z53.21 Procedure and treatment not carried out due to patient leaving prior to being seen by health care provider
CPT/HCPCS: 71045; 93005; 99281

== ENCOUNTER 2023-07-08 23:58 | Emergency (ER) | payer MEDICARE, MEDICAID ==
[~2023-07-08] VITALS: Ht 182.9 cm; Wt 86.4 kg
[2023-07-09 00:03] VITALS: BP 153/108; PULSE 99; RESP 18; TEMP 98.6; O2SAT 97
[2023-07-09 00:54] LABS: BASOPHILS % (AUTO) 0.4 % (0-1); EOSINOPHILS # (AUTO) 0.3 X10'3 (0-0.9); EOSINOPHILS % (AUTO) 6.7 % (0-6); HEMATOCRIT 38.7 % (42.0-52.0); HEMOGLOBIN 12.7 g/dl (14.0-17.9); LYMPHOCYTES # (AUTO) 1.4 X10'3 (1.1-4.8); LYMPHOCYTES % (AUTO) 30.6 % (21-51); MEAN CORPUSCULAR HEMOGLOBIN 24.4 PG (27.0-31.0); MEAN CORPUSCULAR HGB CONC 32.9 g/dL (33.0-36.5); MEAN CORPUSCULAR VOLUME 74.2 FL (78-98); MONOCYTES # (AUTO) 0.5 X10'3 (0-0.9); MONOCYTES % (AUTO) 11.1 % (2-12); NEUTROPHILS # (AUTO) 2.4 X10'3 (1.8-7.7); NEUTROPHILS % (AUTO) 51.2 % (42-75); PLATELET COUNT 180 X10'3 (140-440); RED BLOOD COUNT 5.21 X10'6 (4.70-6.10); RED CELL DISTRIBUTION WIDTH 15.6 % (11.5-14.5); WHITE BLOOD COUNT 4.6 X10'3 (4.5-11.0)
[2023-07-09 01:48] LABS: ALANINE AMINOTRANSFERASE 82 U/L (12-78); ALBUMIN 3.2 G/DL (3.4-5.0); ALBUMIN/GLOBULIN RATIO 0.9 (1.1-1.5); ALKALINE PHOSPHATASE 70 IU/L (46-116); ANION GAP 8 (8-16); ASPARTATE AMINO TRANSFERASE 52 U/L (10-37); BILIRUBIN,TOTAL 0.3 MG/DL (0.1-1.0); BLOOD UREA NITROGEN 25 MG/DL (7-18); CALCIUM 8.3 MG/DL (8.5-10.1); CHLORIDE 103 MMOL/L (99-107); CREATININE 1.04 MG/DL (0.60-1.10); GLUCOSE 102 MG/DL (70-104); POTASSIUM 3.6 MMOL/L (3.5-5.1); SODIUM 138 MMOL/L (135-145); TOTAL CARBON DIOXIDE 26.9 MMOL/L (24-32); TOTAL PROTEIN 6.8 G/DL (6.4-8.2); eCRCL 87 ML/MIN; eGFR 74 ML/MIN
[2023-07-09 01:56] LABS: PRO BRAIN NATRIURETIC PEPTIDE 398 PG/ML (0-125)
== END 2023-07-09 02:52 | disposition left against medical advice (07) ==
LOC: ER 23:59
DX: R07.89 Other chest pain (principal); Z53.21 Procedure and treatment not carried out due to patient leaving prior to being seen by health care provider
CPT/HCPCS: 36415; 71045; 80053; 83880; 84484; 85025; 93005; 99281; 99285

== ENCOUNTER 2023-07-16 23:33 | Emergency (ER) | payer MEDICARE, MEDICAID ==
[~2023-07-16] VITALS: Ht 182.9 cm; Wt 83.4 kg
[2023-07-16 23:46] VITALS: BP 136/97; PULSE 87; RESP 15; TEMP 97.6; O2SAT 97
== END 2023-07-17 02:03 | disposition left against medical advice (07) ==
LOC: ER 23:34
DX: M79.644 Pain in right finger(s) (principal); Z53.21 Procedure and treatment not carried out due to patient leaving prior to being seen by health care provider
CPT/HCPCS: 99281

== ENCOUNTER 2024-06-05 04:09 | Emergency (ER) | payer MEDICARE, MEDICAID | END 2024-06-05 05:30 | disposition left against medical advice (07) | LOC: ER 04:10 | DX: R10.9 Unspecified abdominal pain (principal); Z53.21 Procedure and treatment not carried out due to patient leaving prior to being seen by health care provider ==

== ENCOUNTER 2024-06-05 10:38 | Emergency (ER) | payer MEDICARE, MEDICAID ==
[~2024-06-05] VITALS: Ht 182.9 cm; Wt 90.9 kg
[2024-06-05 10:49] VITALS: TEMP 97.7
[2024-06-05] MEDS: ondansetron/PF 4mg/2ml inj IV ONE (11:50)
[2024-06-05] MEDS: ketorolac trometh 30MG/ML vial 30 MG/ML VIAL IV ONE (11:50)
[2024-06-05] MEDS: normal saline 1000ml 1,000 ML IV ONE (11:51)
[2024-06-05 11:59] LABS: BILIRUBIN,URINE NEGATIVE (Neg); CLARITY,URINE CLEAR (Clear); COLOR,URINE YELLOW (Yellow); GLUCOSE, URINE NEGATIVE (Neg); KETONES,URINE 15 mg/dl (Neg); LEUKOCYTE ESTERASE ,URINE NEGATIVE (Neg); NITRITES, URINE NEGATIVE (Neg); OCCULT BLOOD,URINE NEGATIVE (Neg); PH,URINE 5.5 (4.8-8.0); PROTEIN,URINE NEGATIVE (Neg); UROBILINOGEN,URINE 0.2 E.U/dL (0.2-1.0)
[2024-06-05 12:03] LABS: UA COLLECTION TYPE VOIDED
[2024-06-05 12:24] LABS: ALANINE AMINOTRANSFERASE 67 U/L (12-78); ALBUMIN 3.6 G/DL (3.4-5.0); ALBUMIN/GLOBULIN RATIO 1.1 (1.1-1.5); ALKALINE PHOSPHATASE 64 IU/L (46-116); ANION GAP 10 (8-16); ASPARTATE AMINO TRANSFERASE 45 U/L (10-37); BILIRUBIN,TOTAL 0.6 MG/DL (0.1-1.0); BLOOD UREA NITROGEN 29 MG/DL (7-18); BUN/CREATININE RATIO 37.7 (10.0-20.0); CALCIUM 8.5 MG/DL (8.5-10.1); CHLORIDE 104 MMOL/L (99-107); CREATININE 0.77 MG/DL (0.60-1.10); GLUCOSE 119 MG/DL (70-104); LIPASE 21 U/L (16-77); POTASSIUM 3.9 MMOL/L (3.5-5.1); SODIUM 139 MMOL/L (135-145); TOTAL CARBON DIOXIDE 25.2 MMOL/L (24-32); TOTAL PROTEIN 6.9 G/DL (6.4-8.2); eCRCL 116 ML/MIN; eGFR > 90 ML/MIN
[2024-06-05 12:28] LABS: URINE AMPHETAMINE SCREEN POSITIVE (Neg); URINE BARBITUATE SCREEN NEGATIVE (Neg); URINE BENZODIAZEPINES SCREEN NEGATIVE (Neg); URINE CANNABINOID SCREEN NEGATIVE (Neg); URINE COCAINE SCREEN NEGATIVE (Neg); URINE METHADONE SCREEN NEGATIVE (Neg); URINE OPIATE SCREEN POSITIVE (Neg); URINE PHENCYCLIDINE SCREEN NEGATIVE (Neg)
[2024-06-05 13:46] VITALS: BP 147/98; PULSE 78; RESP 18; O2SAT 98
== END 2024-06-05 13:52 | disposition home or self-care (01) ==
LOC: ER 10:39
DX: F15.10 Other stimulant abuse, uncomplicated (principal); E86.0 Dehydration; R11.2 Nausea with vomiting, unspecified; R10.84 Generalized abdominal pain; F41.9 Anxiety disorder, unspecified; G89.29 Other chronic pain; Z86.14 Personal history of Methicillin resistant Staphylococcus aureus infection; F12.90 Cannabis use, unspecified, uncomplicated; Z59.00 Homelessness unspecified; Z56.0 Unemployment, unspecified; Z72.89 Other problems related to lifestyle; Z98.890 Other specified postprocedural states
CPT/HCPCS: 80053; 80305; 81003; 83690; 93005; 96361; 96374; 96375; 99284; J1885; J2405; J7030

== ENCOUNTER 2024-11-20 12:41 | Emergency (ER) | payer MEDICARE, MEDICAID ==
[~2024-11-20] VITALS: Ht 185.4 cm; Wt 86.5 kg
[~2024-11-20 12:41] MED LIST changes: -CEPH-585 PO
[2024-11-20 12:45] VITALS: BP 134/90; PULSE 92; RESP 16; O2SAT 97
[2024-11-20] MEDS ORDERED: IBUP-1984 PO (12:57)
[2024-11-20] MEDS ORDERED: PENI500T2 PO (12:57)
--- NOTE | 2024-11-20 12:58 | Physician Documentation ---
History of Present Illness General Chief Complaint: Tooth Problem Stated Complaint: TOOTH PAIN Time Seen by MD: 12:54 Primary Medical Doctor: [facility] History of Present Illness Initial Comments A year old male presents to the emergency department with early left lower dental infection. The waiting to schedule an appointment with the dentist for extraction. Has a global dental decay. Otherwise no fever recent illness or injury. Medication Reconciliation Allergies: Coded Allergies: No Known Allergies (Unverified , 07/16/23) Scheduled Carbamide Peroxide (Ear Wax Drops), 5 DROP EACH EAR Q12H Diphenhydramine Hcl (Benadryl), 25 MG PO QPM Ibuprofen (Ibuprofen), 1 TAB PO Q8H Ibuprofen (Ibuprofen), 1 TAB PO Q8H Ibuprofen* (Motrin*), 800 MG PO Q8H Meclizine HCl (Meclizine HCl), 1 TAB PO Q8H Ondansetron Hcl (Zofran), 1 TAB PO Q6H Miscellaneous Medications Home Med List (No Home Medications), (Reported) Past Medical History Past Medical History: *PULMONARY*, Hepatitis C, Chronic Back Pain, Cellulitis, MRSA Abscess Past Surgical History: orthopedic surgeries Smoking: Cigarettes, Less than 1 pack/day Alcohol Use: Heavy Drug Use: marijuana, methamphetamine Lives with: Other Lives In: Homeless Occupation: unemployed Review of Systems All Other Systems at this time: Reviewed and Negative Constitutional: Denies: fever ENT Dental pain Physical Exam Physical Exam Vital Signs: RN Vital Signs have been reviewed: Yes, Temperature: 97.6, Source: Temporal, Heart Rate: 92, Respiratory Rate: 16, BP: 134/90, Pulse Oximetry: 97, Weight: 86.500 General Appearance: alert, mild distress Head: normal inspection Face: normal inspection Pupils/EOM/Fundus: PERRLA Oropharynx: other (Dental decay mild gingiva erythema without periapical abscess) Respiratory: no respiratory distress Chest: no accessory muscle use Cardiovascular: normal peripheral pulses Neurologic: oriented x4 Motor / Sensory: no motor deficit, no sensory deficit Skin: normal color Progress Results/Orders Results/Orders Vital Signs 11/20/24 12:45 Temp 97.6 Pulse 92 Resp 16 B/P (MAP) 134/90 Pulse Ox 97 Medical Decision Making Differential Diagnosis Examination history consistent with a dental abscess with global dental decay requiring antibiotic coverage and NSAID therapy. Patient to continue his efforts to schedule with DDS. No obvious periapical abscess space-occupying mass suspected or Joshua's angina. Safely discharged in the emergency department. Departure Disposition: 01 HOME / SELF CARE / HOMELESS Impression: Primary Impression: Dental abscess Condition: Stable Discharge Instructions: Dental Pain Referrals: NO PRIMARY CARE PROVIDER (PCP) Prescriptions Penicillin V Potassium* (Penicillin VK*) 500 Mg Tablet 1 TAB PO Q12H for 10 Days, #20 TAB Prov: ANA NOEL 11/20/24 Ibuprofen* (Motrin*) 400 Mg Tablet 400 MG PO Q6H for 10 Days, #30 TAB Prov: ANA NOEL 11/20/24 Education Educated: Patient Educated regarding: diagnosis Signature Scribe Signature: . Attestation: . ANA NOEL Nov 20, 2024 12:57
[2024-11-20 13:17] VITALS: TEMP 97.6
== END 2024-11-20 13:19 | disposition home or self-care (01) ==
LOC: ER 12:42
DX: K04.7 Periapical abscess without sinus (principal); F12.90 Cannabis use, unspecified, uncomplicated; F15.90 Other stimulant use, unspecified, uncomplicated
CPT/HCPCS: 99283

== ENCOUNTER 2025-03-20 02:05 | Emergency (ER) | payer MEDICARE, MEDICAID ==
[~2025-03-20] VITALS: Ht 182.9 cm; Wt 86.4 kg
[~2025-03-20 02:05] MED LIST changes: -IBUP-1985 PO; +IBUP600T52 PO
[2025-03-20 02:13] VITALS: TEMP 98
--- NOTE | 2025-03-20 02:25 | ELECTROCARDIOGRAPH REPORT ---
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 Rocky Keita Measurements Intervals [place] Rate: 101 P: 79 CT: 161 QRS: 82 QRSD: 176 T: 45 QT: 414 QTc: 537 Interpretive Statements Sinus tachycardia Right bundle branch block Electronically Signed On 03-21-2025 21:42:[address] Rocky Keita Please click the below link to view image of tracing.
[2025-03-20 02:30] LABS: MEAN PLATELET VOLUME 7.6 FL (7.4-10.4); RED CELL DISTRIBUTION WIDTH 15.4 % (11.5-14.5)
--- NOTE | 2025-03-20 02:47 | RADIOLOGY REPORT ---
CHEST RADIOGRAPH Indication: CP Technique: Single frontal view of the chest was obtained COMPARISON: DI CHEST,SINGLE VIEW on DOS: 07/09/23, DI CHEST,SINGLE VIEW on DOS: 07/03/23, DI CHEST,SINGLE VIEW on DOS: 06/29/23, DI CHEST,SINGLE VIEW on DOS: 06/23/23, DI CHEST,SINGLE VIEW on DOS: 06/13/23 FINDINGS: Lines and Tubes: None Lungs: Clear Pleura: No effusion. No pneumothorax. Cardiomediastinal contours: Unremarkable Bones: Unremarkable IMPRESSION: 1. No acute disease.
--- NOTE | 2025-03-20 02:52 | Physician Documentation ---
History of Present Illness ~ Chief Complaint: Overdose Stated Complaint: POSSIBLE OVERDOSE Time Seen by MD: 02:27 Primary Medical Doctor: None Mode of Arrival: POV HPI Patient presents to the emergency room for evaluation. He is feeling unusual and he feels he may have done too much cocaine this evening. Denies chest pain. Endorses cotton mouth Medication Reconciliation Allergies: Coded Allergies: No Known Allergies (Unverified , 07/16/23) Scheduled Carbamide Peroxide (Ear Wax Drops), 5 DROP EACH EAR Q12H Diphenhydramine Hcl (Benadryl), 25 MG PO QPM Ibuprofen (Ibuprofen), 1 TAB PO Q8H Ibuprofen (Ibuprofen), 1 TAB PO Q8H Ibuprofen* (Motrin*), 800 MG PO Q8H Meclizine HCl (Meclizine HCl), 1 TAB PO Q8H Ondansetron Hcl (Zofran), 1 TAB PO Q6H Miscellaneous Medications Home Med List (No Home Medications), (Reported) Past Medical History Past Medical History: *PULMONARY*, Hepatitis C, Chronic Back Pain, Cellulitis, MRSA Abscess Past Surgical History: orthopedic surgeries Alcohol Use: Heavy Drug Use: marijuana, methamphetamine Lives with: Other Lives In: Homeless Occupation: unemployed Review of Systems ROS All review of systems negative except as per HPI Physical Exam Vital Signs: Temperature: 98.0, Heart Rate: 102, Respiratory Rate: 16, BP: 164/96, Pulse Oximetry: 97, Weight: 86.360 Oxygen Flow Rate: 0 Physical Exam General: Patient is awake, alert, oriented x4 in no acute distress. Anxious Head: Normocephalic and atraumatic. Eyes: Conjunctival normal. EOMI. PERRL. ENT: Mucous membranes moist. Neck: Supple, trachea is midline. Chest: Clear to auscultation bilaterally without rales, rhonchi, or wheezes. There is no accessory muscle use or retractions. Cardiac: RRR without murmurs, gallops, or rubs. Abd: Soft, nondistended, nontender, with normoactive bowel sounds. No guarding, rebound, or rigidity. Progress Results/Orders Results/Orders Orders - MAXIMILIANO GRANT MD Chest,Single View (03/20/25 02:30) Monitor (03/20/25 02:19) Saline Lock (03/20/25 02:19) Oxygen (10/1/25 02:19) Hs Troponin I W Calculations (03/20/25 04:19) Hs Troponin I W Calculations (03/20/25 05:19) Completed Orders - MAXIMILIANO GRANT MD Chest,Single View (03/20/25 02:30) Cbc/Diff (03/20/25 02:19) BMP (03/20/25 02:19) PBNP (03/20/25 02:19) Electrocardiogram (03/20/25 02:19) Hs Troponin I W Calculations (03/20/25 02:19) Vital Signs 03/20/25 03/20/25 02:13 02:41 Temp 98.0 Pulse 102 Resp 18 16 B/P (MAP) 164/96 Pulse Ox 97 O2 Flow Rate 0 Laboratory Tests Test 03/20/25 02:23 White Blood Count 6.9 Red Blood Count 5.74 Hemoglobin 13.3 L Hematocrit 39.9 L Mean Corpuscular Volume 69.5 L Mean Corpuscular Hemoglobin 23.1 L Mean Corpuscular Hemoglobin Concent 33.3 Red Cell Distribution Width 15.4 H Platelet Count 162 Mean Platelet Volume 7.6 Neutrophils (%) (Auto) 74.0 Lymphocytes (%) (Auto) 16.5 L Monocytes (%) (Auto) 8.1 Eosinophils (%) (Auto) 0.5 Basophils (%) (Auto) 0.9 Neutrophils # (Auto) 5.1 Lymphocytes # (Auto) 1.1 Monocytes # (Auto) 0.6 Eosinophils # (Auto) 0.0 Basophils # (Auto) 0.1 CBC Comment Sodium Level 139 Potassium Level 3.7 Chloride Level 102 Carbon Dioxide Level 27.7 Anion Gap 9 Blood Urea Nitrogen 12 Creatinine 0.81 Estimated GFR/1.73 m2 > 90 BUN/Creatinine Ratio 14.8 Glucose Level 104 Calcium Level 8.7 Troponin I High Sensitivity 9 Pro-B-Type Natriuretic Peptide 251 H Albumin 3.8 Chemistry Comments EKG/XRAY/CT/US/VASC/MRI EKG : Additional Comment EKG interpreted by myself shows time of 0223, rate 101, sinus tachycardia, normal axis, right bundle-branch block, nonspecific ST-T changes Medical Decision Making Findings Patient presents to the emergency room for evaluation as per HPI. Differentials include but are not limited to electrolyte disturbances NSTEMI, STEMI therefore EKG and labs ordered which were reassuring. Patient denies any chest pain. I suspect adverse side effect from the drugs he admits to using Departure Disposition: 01 HOME / SELF CARE / HOMELESS Impression: Primary Impression: General medical exam Condition: Stable Discharge Instructions: General Discharge Instructions Referrals: NO PRIMARY CARE PROVIDER (PCP) Signature Scribe Signature: No scribe Attestation: The note accurately reflects work and decisions made by me.Maximiliano Grant MD 03/20/25 03:01 MAXIMILIANO GRANT MD Mar 20, 2025 02:52
[2025-03-20 02:56] LABS: CREATININE 0.81 MG/DL (0.60-1.10); PRO BRAIN NATRIURETIC PEPTIDE 251 PG/ML (0-125); TOTAL CARBON DIOXIDE 27.7 MMOL/L (24-32); eCRCL 109 ML/MIN; eGFR > 90 ML/MIN
[2025-03-20 03:38] VITALS: BP 159/98; PULSE 91; RESP 16; O2SAT 94
== END 2025-03-20 03:50 | disposition home or self-care (01) ==
LOC: ER 02:06
DX: Z00.00 Encounter for general adult medical examination without abnormal findings (principal); G89.29 Other chronic pain; F10.90 Alcohol use, unspecified, uncomplicated; F12.90 Cannabis use, unspecified, uncomplicated; F15.90 Other stimulant use, unspecified, uncomplicated; Z86.14 Personal history of Methicillin resistant Staphylococcus aureus infection; Z86.19 Personal history of other infectious and parasitic diseases; Z79.899 Other long term (current) drug therapy; Z56.0 Unemployment, unspecified; Z59.02 Unsheltered homelessness; Z98.890 Other specified postprocedural states; Y90.9 Presence of alcohol in blood, level not specified
CPT/HCPCS: 71045; 80048; 83880; 84484; 85025; 93005; 99285